=== PATIENT | female | born 1985 | race Caucasian/White ===

== ENCOUNTER 2018-06-26 19:30 | Emergency (ER) | payer MEDICAID ==
[2018-06-26 19:37] VITALS: BP 116/83; Ht 162.6 cm
[2018-06-26] MEDS ORDERED: TOPROL XL25 MG PO (19:39)
[2018-06-26] MEDS ORDERED: ROBAXIN500 MG PO (22:44)
[2018-06-26] MEDS ORDERED: ULTRAM50 MG PO (22:44)
== END 2018-06-26 23:00 | disposition home or self-care (01) ==
LOC: D.ER 19:30
DX: S16.1XXA Strain of muscle, fascia and tendon at neck level, initial encounter (principal); V86.69XA Passenger of other special all-terrain or other off-road motor vehicle injured in nontraffic accident, initial encounter; Y93.89 Activity, other specified; Y92.89 Other specified places as the place of occurrence of the external cause; S39.012A Strain of muscle, fascia and tendon of lower back, initial encounter; F17.200 Nicotine dependence, unspecified, uncomplicated

== ENCOUNTER 2021-04-12 13:06 | Inpatient (IN) | payer BC ==
[~2021-04-12] VITALS: Ht 162.6 cm; Wt 68.2 kg
[~2021-04-12 13:06] MED LIST: ROBAXIN500 MG PO; TOPROL XL25 MG PO; ULTRAM50 MG PO
[2021-04-12 13:54] LABS: CALC OSMOLALITY 276 mosm/kg (275-300); CARBON DIOXIDE 27.6 mmol/L (21.0-32.0); CHLORIDE - SERUM 103 mmol/L (98-107); CREATININE - SERUM 0.8 mg/dL (0.6-1.3); GLUCOSE 122 mg/dL (74-106); POTASSIUM - SERUM 3.8 mmol/L (3.5-5.1); SODIUM 138 mmol/L (136-145); UREA NITROGEN 12 mg/dL (7-18); eGFR NON AFRICAN AMERICAN 85 mL/min (90-120)
[2021-04-12 14:02] LABS: ALBUMIN 2.8 g/dL (3.4-5.0); ALKALINE PHOSPHATASE 210 U/L (30-120); ALT (SGPT) 117 U/L (10-68); AMYLASE - SERUM 36 U/L (25-115); BILIRUBIN - TOTAL 2.62 mg/dL (0.2-1.3); LIPASE 126 U/L (73-393); PROTEIN - SERUM 7.9 g/dL (6.4-8.2)
[2021-04-12 14:03] LABS: TROPONIN-I < 0.017 ng/mL (0.000-0.060)
[2021-04-12 14:04] LABS: BASOPHILS 0.5 % (0-2); EOSINOPHILS 1.9 % (0-7); HEMATOCRIT 36.6 % (36.0-48.0); LYMPHOCYTES 16.5 % (15-50); MCH 28.9 pg (26.0-34.0); MCHC 32.7 g/dL (31.0-37.0); MCV 88.5 fL (80.0-100.0); MEAN PLATELET VOLUME 12.3 fL (7.4-10.4); MONOCYTES 10.1 % (2-11); RBC 4.13 10x6/uL (4.00-5.40); RDW 16.3 % (11.5-14.5); WBC 8.8 10x3/uL (4.8-10.8)
[2021-04-12 14:05] LABS: PLATELET COUNT 93 10x3/uL (130-400)
[2021-04-12 14:21] LABS: HCG URINE NEGATIVE (NEGATIVE)
[2021-04-12 14:44] VITALS: BP 134/59
[2021-04-12 14:52] LABS: BILIRUBIN NEGATIVE (NEGATIVE); KETONE NEGATIVE mg/dL (< 1+); NITRITE NEGATIVE (NEGATIVE); SQUAMOUS EPITHELIAL 2 HPF (0-4); UROBILINOGEN OVER mg/dL (< 2); WHITE CELLS - URINE 1 HPF (0-4)
[2021-04-12 21:36] VITALS: BP 119/67
--- NOTE | 2021-04-12 22:37 | NUR ---
PT TRANSFERRED TO 2213. IV INTACT. BELONGINGS SENT WITH PATIENT. REPORT GIVEN TO EBONY.
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
[2021-04-12 23:05] VITALS: BP 127/82
[2021-04-13 02:12] VITALS: Ht 162.6 cm; Wt 68.2 kg
[2021-04-13 05:59] LABS: BASOPHILS 0.8 % (0-2); EOSINOPHILS 3.4 % (0-7); HEMATOCRIT 35.1 % (36.0-48.0); HEMOGLOBIN 11.4 g/dL (12-16); LYMPHOCYTES 25.5 % (15-50); MCH 28.9 pg (26.0-34.0); MCHC 32.5 g/dL (31.0-37.0); MEAN PLATELET VOLUME 12.4 fL (7.4-10.4); MONOCYTES 10.9 % (2-11); NEUTROPHILS 59.4 % (40-80); PLATELET COUNT 86 10x3/uL (130-400); RBC 3.94 10x6/uL (4.00-5.40); RDW 15.9 % (11.5-14.5); WBC 5.7 10x3/uL (4.8-10.8)
[2021-04-13 06:00] LABS: PLATELET ESTIMATE DECREASED
[2021-04-13 06:07] LABS: ALBUMIN 2.5 g/dL (3.4-5.0); ALKALINE PHOSPHATASE 189 U/L (30-120); ALT (SGPT) 93 U/L (10-68); BILIRUBIN - TOTAL 1.68 mg/dL (0.2-1.3); CALC OSMOLALITY 277 mosm/kg (275-300); CALCIUM 8.3 mg/dL (8.5-10.1); CARBON DIOXIDE 29.2 mmol/L (21.0-32.0); CHLORIDE - SERUM 106 mmol/L (98-107); CREATININE - SERUM 0.8 mg/dL (0.6-1.3); GLUCOSE 116 mg/dL (74-106); PROTEIN - SERUM 7.2 g/dL (6.4-8.2); SODIUM 139 mmol/L (136-145); UREA NITROGEN 11 mg/dL (7-18); eGFR NON AFRICAN AMERICAN 85 mL/min (90-120)
[2021-04-13 08:50] VITALS: BP 113/75
--- NOTE | 2021-04-13 09:16 | NUR ---
[id number] UP0N ENTERING. ADMINSTERED MORNING MEDICATION WITH A SIP OF WATER. DENIES FURTHER NEEDS AT THIS TIME. BED IN LOWEST POSITION, BED RAILS X2, CALL LIGHT WITHIN REACH. WILL CONTINUE POC. ASSESSMENT PERFORMED
--- NOTE | 2021-04-13 09:58 | NUR ---
PRN MORPHINE FOR REPORTED SHOULDER PAIN. ULTRASOUND IN ROOM AT THIS TIME. WILL CONTINUE POC.
[2021-04-13 12:56] VITALS: BP 143/65
[2021-04-13 16:38] VITALS: BP 122/80
--- NOTE | 2021-04-13 17:46 | NUR ---
MORPHINE AND ZOFRN PRN PER REQUEST. RESTING COMFORTABLY. DENIES ANY NEEDS AT THIS TIME. WILL CONTINUE POC.
[2021-04-13 20:00] VITALS: BP 108/43
[2021-04-14 04:48] LABS: UDS - AMPHET NEGATIVE QUAL (NEGATIVE); UDS - BARB NEGATIVE QUAL (NEGATIVE); UDS - BENZO NEGATIVE QUAL (NEGATIVE); UDS - COCAINE NEGATIVE QUAL (NEGATIVE); UDS - OPIATE POSITIVE QUAL (NEGATIVE); UDS - PCP NEGATIVE QUAL (NEGATIVE); UDS - THC NEGATIVE QUAL (NEGATIVE)
--- NOTE | 2021-04-14 07:10 | NUR ---
REC'D IN BED AWAKE AND ALERT. RESP EVEN AND UNLABORED WITH NO DISTRESS NOTED CAN EXPRESS NEEDS AND WANTS. NO C/O NOTED OR VOICED AT THIS TIME. ASSESSMENT COMPLETED. C/L IN REACH AT BEDSIDE.
[2021-04-14 09:23] VITALS: BP 112/79
--- NOTE | 2021-04-14 09:50 | NUR ---
WAS MEDICATED WITH MORPHINE AND ZOFRAN AT THIS TIME FOR C/O PAIN AND NAUSEA. C/L IN REACH AT BEDSIDE. WILL CONTINUE TO OBSERVE FOR NEEDS.
[2021-04-14 12:55] VITALS: BP 122/80
--- NOTE | 2021-04-14 13:36 | NUR ---
I have reviewed this patient and I concur with the Shift Assessment completed by the Licensed Practical Nurse today this shift.
--- NOTE | 2021-04-14 14:00 | NUR ---
WAS MEDICATED WITH MORPHINE AND ZOFRAN FOR C/O PAIN AND NAUSEA. WILL CONTINUE TO OBSERVE FOR NEEDS. C/L IN REACH AT BEDSIDE.
[2021-04-14 16:46] VITALS: BP 136/76
[2021-04-14 20:00] VITALS: BP 113/65
[2021-04-15 00:05] VITALS: BP 111/68
[2021-04-15 04:07] VITALS: BP 125/66
--- NOTE | 2021-04-15 07:15 | NUR ---
REC'D IN BED AWAKE. RESP EVEN AND UNLABORED WITH NO DISTRESS NOTED. CAN EXPRESS NEEDS AND WANTS. NO C/O NOTED OR VOICED. ASSESSMENT COMPLETED. C/L IN REACH.
[2021-04-15 09:17] VITALS: BP 145/79
[2021-04-15 10:12] LABS: HEPATITIS C ANTIBODY 0.1 S/CO RAT (0.0-0.9)
[2021-04-15 10:27] LABS: ALBUMIN 2.7 g/dL (3.4-5.0); ANION GAP 7.5 mmol/L (8-16); BILIRUBIN - TOTAL 1.32 mg/dL (0.2-1.3); CALCIUM 8.7 mg/dL (8.5-10.1); CARBON DIOXIDE 32.5 mmol/L (21.0-32.0); PROTEIN - SERUM 7.8 g/dL (6.4-8.2)
[2021-04-15 10:37] LABS: BASOPHILS 0.9 % (0-2); HEMATOCRIT 38.4 % (36.0-48.0); HEMOGLOBIN 12.5 g/dL (12-16); LYMPHOCYTES 26.1 % (15-50); MCH 29.2 pg (26.0-34.0); MCHC 32.4 g/dL (31.0-37.0); MCV 90.1 fL (80.0-100.0); RBC 4.27 10x6/uL (4.00-5.40); RDW 16.3 % (11.5-14.5); WBC 6.9 10x3/uL (4.8-10.8)
[2021-04-15 11:01] LABS: PLATELET COUNT 112 10x3/uL (130-400)
[2021-04-15 12:48] VITALS: BP 113/76
--- NOTE | 2021-04-15 17:35 | NUR ---
I have reviewed this patient and I concur with the Shift Assessment completed by the Licensed Practical Nurse today this shift.
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
--- NOTE | 2021-04-15 20:00 | NUR ---
PT DID NOT RETURN TO ROOM, NOT SEEN IN ER. NOT ABLE TO GET IN CONTACT WITH PT OR FAMILY. PT DISCHARGED AMA
== END 2021-04-15 20:00 | disposition left against medical advice (07) | DRG 442 ==
LOC: D.ER 13:06 → EDSEX 17:17 → D.MS 17:17 → D.EDHOLD 17:17 → D.MS 20:56 → D.EDHOLD 04-15 15:59 → D.MS 04-15 16:03
PROVIDERS: Family Medicine; Legal Medicine; Surgery; ADMIT Emergency Medicine; ATTEND Emergency Medicine
DX: B15.9 Hepatitis A without hepatic coma (principal); R17 Unspecified jaundice; R10.9 Unspecified abdominal pain; E80.6 Other disorders of bilirubin metabolism; Z59.0 Homelessness; F55.8 Abuse of other non-psychoactive substances